=== PATIENT | female | born 1940 | race Caucasian/White ===

== ENCOUNTER 2017-10-14 03:06 | Inpatient (IN) | payer MEDICARE ==
[2017-10-14] VITALS (7 sets, daily range): BP systolic 122–139; BP diastolic 63–75; PULSE 71–80; RESP 14–18; TEMP 96.3–98.5; O2SAT 89–97
[2017-10-14] MEDS ORDERED: ZOLO100T PO (03:19)
[2017-10-14] MEDS ORDERED: LISI-515 PO (03:19)
[2017-10-14] MEDS ORDERED: MORPHINE SULFATE 2 MG/ML INJ IV PUSH ONE (04:30)
[2017-10-14] MEDS ORDERED: MORPHINE SULFATE 4 MG/ML INJ IV PUSH ONE (04:30)
--- NOTE | 2017-10-14 04:44 | PD ---
HPI Chief Complaint: Injury Time Seen by Provider: 03:18 Travel History International Travel<30 days: No Contact w/Intl Traveler<30days: No Traveled to known affect area: No History of Present Illness HPI pt transferred from [facility] for supracondyle fracture with small gas in joint , Trauma accepted transfer but on arrival feels that pt can got to ortho directly and I call certified orthotist/pedorthist for splint sugar tongs and then Ortho attending his partition assembly machine operator PA Jose A called back to ask to admit to Hepis and NPO for OR in AM . On arrival pt is in sling and jaja wrapped. > Pt was given Morphine and ancef at the other hospital .... pt has Hx of HTN on Lisinopril 20 mg po and no other Hx. Pain severe 10/10 but morhine helped pain , and now 4/10 , Seen at [facility] before seen by this MD . Pt stable vitals at this time will admit for OR PFSH Past Medical History Anemia: Yes Kidney Stones: Yes Past Surgical History Hysterectomy: Yes Other Surgery: Yes (LITHROTRIPSY ) Social History Alcohol Use: Yes Tobacco Use: No Substance Use: No Allergies-Medications (Allergen,Severity, Reaction): Coded Allergies: No Known Allergies (Verified Allergy, Unknown, 11/21/03) Sulfa (Sulfonamide Antibiotics) (Verified Allergy, Unknown, 10/14/17) Reported Meds & Prescriptions Reported Meds & Active Scripts Active Calcium 600+D 200 (Calcium Carbonate-Vitamin D) 600-200 Mg-Unit Tab 1 Tab PO BID Ergocalciferol 50,000 Unit Cap 50,000 Units PO Q7D Hydrocodone-Acetaminophen 7.5 Mg-325 Mg Tab 1 Tab PO Q4H PRN Reported Lisinopril 20 Mg Tab 20 Mg PO DAILY Zoloft (Sertraline HCl) 100 Mg Tab 125 Mg PO DAILY Review of Systems Except as stated in HPI: all other systems reviewed are Neg Physical Exam Narrative GENERAL: non toxic appearance moderate pain if arm moved. SKIN: Warm and dry. HEAD: Atraumatic. Normocephalic. EYES: Pupils equal and round. No scleral icterus. No injection or drainage. ENT: No nasal bleeding or discharge. Mucous membranes pink and moist. NECK: Trachea midline. No JVD. CARDIOVASCULAR: Regular rate and rhythm. RESPIRATORY: No accessory muscle use. Clear to auscultation. Breath sounds equal bilaterally. GASTROINTESTINAL: Abdomen soft, non-tender, nondistended. Hepatic and splenic margins not palpable. MUSCULOSKELETAL: Extremities right elbow area tender slightly swollen, distal radial pulse intact 2 + and sensation neuro vascular intact NEUROLOGICAL: Awake and alert. No obvious cranial nerve deficits. Motor grossly within normal limits. Five out of 5 muscle strength in the arms and legs. Normal speech. PSYCHIATRIC: Appropriate mood and affect; insight and judgment normal. EXTREMITY Right elbow is in a sling tender and swollen at the distal humerus area pain in the joint of the elbow --sensation intact pulses radial pulses intact Data Data Last Documented VS Vital Signs Date Time Temp Pulse Resp B/P (MAP) Pulse Ox O2 Delivery O2 Flow Rate FiO2 10/14/17 03:09 98.5 72 18 139/63 (88) 89 Orders Orders Morphine Inj (Morphine Inj) (10/14/17 04:30) Morphine Inj (Morphine Inj) (10/14/17 04:30) Admit To Inpatient (10/14/17 ) Vital Signs (Adult) Q4H (10/14/17 04:43) Activity Oob With Assistance (10/14/17 04:43) Intake + Output DAVID.QSHIFT (10/14/17 04:43) Sodium Chlor 0.9% 1000 Ml Inj (Ns 1000 M (10/14/17 04:43) Sodium Chloride 0.9% Flush (Ns Flush) (10/14/17 04:45) Sodium Chloride 0.9% Flush (Ns Flush) (10/14/17 09:00) Ondansetron Inj (Zofran Inj) (10/14/17 04:45) Comprehensive Metabolic Panel (10/14/17 06:00) Complete Blood Count With Diff (10/14/17 06:00) Prothrombin Time / Inr (Pt) (10/14/17 06:00) Case Management Consult (10/14/17 04:43) Acetaminophen (Tylenol) (10/14/17 04:45) Acetamin-Hydrocod 325-5 Mg ([place] 5-325 (10/14/17 04:45) Morphine Inj (Morphine Inj) (10/14/17 04:45) Docusate Sodium-Senna (Carlotta-Colace) (10/14/17 09:00) Magnesium Hydroxide Liq (Milk Of Magnesi (10/14/17 04:45) Sennosides (Senokot) (10/14/17 04:45) Bisacodyl Supp (Dulcolax Supp) (10/14/17 04:45) Lactulose Liq (Lactulose Liq) (10/14/17 04:45) Inpatient Certification (10/14/17 ) Consult Orthopedic (10/14/17 ) Lisinopril (Prinivil) (10/14/17 09:00) Admit Order (Ed Use Only) (10/14/17 04:50) Sertraline (Zoloft) (10/14/17 09:00) MDM Medical Decision Making Medical Screen Exam Complete: Yes Emergency Medical Condition: Yes Differential Diagnosis Fracture open distal humerus right sided seen on x-rays at [facility] who accepted the patient and orthopedics is consult to patient is admitted to have this orthopedics Nathalia will be involved with the patient Thuy called back Ancef GEN given tetanus and fluid nothing by mouth for possible OR and a.m. Narrative Course Patient has a fracture transfer [facility] doctor show it's of trauma except the patient then feels orthopedics can take the patient from medicine [facility] admitting service and orthopedic take to the OR in the a.m. Diagnosis Primary Impression: Fracture, humerus Scripts Calcium Carbonate-Vitamin D (Calcium 600+D 200) 600-200 Mg-Unit Tab 1 TAB PO BID for Nutritional Supplement, #90 TAB 0 Refills Prov: Jose A Sandhu Jr. 10/14/17 Ergocalciferol (Ergocalciferol) 50,000 Unit Cap 54704 UNITS PO Q7D for Nutritional Supplement, #8 CAP Prov: Jose A Sandhu Jr. 10/14/17 Hydrocodone-Acetaminophen (Hydrocodone-Acetaminophen) 7.5 Mg-325 Mg Tab 1 TAB PO Q4H Y for PAIN, #60 TAB 0 Refills Prov: Arnold Stewart/Petroleum Transport Driver TIN 10/14/17 Alonzo Mustafa MD Oct 14, 2017 04:44
[2017-10-14] MEDS ORDERED: ACETAMINOPHEN 325 MG TAB PO PRN (04:45)
[2017-10-14] MEDS ORDERED: SODIUM CHLORIDE 0.9% FLUSH 10 ML FLUSH IV FLUSH PRN (04:45)
[2017-10-14] MEDS ORDERED: LACTULOSE SYRUP 20 GM/30 ML CUP PO PRN (04:45)
[2017-10-14] MEDS ORDERED: ONDANSETRON HCL 4 MG/2 ML VIAL IVP PRN (04:45)
[2017-10-14] MEDS ORDERED: MAGNESIUM HYDROXIDE SUSP 30 ML CUP PO PRN (04:45)
[2017-10-14] MEDS ORDERED: ACETAMINOPHEN/HYDROcodone 325 MG/5 MG TAB PO PRN ×2 (04:45→09:30)
[2017-10-14] MEDS ORDERED: MORPHINE SULFATE 2 MG/ML INJ IV PUSH PRN ×2 (04:45→09:30)
[2017-10-14] MEDS ORDERED: SENNOSIDES 8.6 MG TAB PO PRN (04:45)
[2017-10-14] MEDS ORDERED: BISACODYL 10 MG SUPP RECTAL PRN (04:45)
--- NOTE | 2017-10-14 04:56 | HHI.HP ---
HPI Service [facility] Primary Care Physician Unknown Admission Diagnosis Diagnoses: (1) Fall Diagnosis: Principal (2) Right humeral fracture Diagnosis: Principal (3) HTN (hypertension) Diagnosis: Principal Travel History International Travel<30 Days: No Contact w/Intl Traveler <30 Da: No Traveled to Known Affected Are: No History of Present Illness This is a 76-year-old female with a PMH of HTN, Depression, Anemia and Renal Stones who was a Trauma transfer from [facility] for fall w/ right humerus fx. Pt was accepted by Trauma Surgeon, however upon arrival, pt cleared from Trauma and acceptable for medicine admission. Per pt, she tripped over curb and fell onto right shoulder. No head trauma or LOC. Denies other injuries. Found to have Right humerus fx on imaging from ([facility] in chart). Ortho consulted by ER physician, plan is for surgical intervention. Review of Systems Except as stated in HPI: all other systems reviewed are Neg ROS: 14 point review of systems otherwise negative. Past Family Social History Past Medical History PMH: HTN, Depression, Anemia and Renal Stones Past Surgical History PAST SURGICAL HISTORY: Hysterectomy, Lithotripsy Allergies: Coded Allergies: No Known Allergies (Verified Allergy, Unknown, 11/21/03) Sulfa (Sulfonamide Antibiotics) (Verified Allergy, Unknown, 10/14/17) Family History PAST FAMILY HISTORY: Reviewed. No h/o DM or CAD Social History PAST SOCIAL HISTORY: Occasional alcohol. Negative for tobacco or drugs. Physical Exam Vital Signs Vital Signs Date Time Temp Pulse Resp B/P (MAP) Pulse Ox O2 Delivery O2 Flow Rate FiO2 10/14/17 03:09 98.5 72 18 139/63 (88) 89 Physical Exam PE: GENERAL: Pleasant elderly white female in no acute distress. at bedside. HEENT: PERRLA, EOMI. No scleral icterus or conjunctival pallor. No lid lag or facial droop. CARDIOVASCULAR: Regular rate and rhythm. No obvious murmurs to auscultation. No chest tenderness to palpation. RESPIRATORY: No obvious rhonchi or wheezing. Clear to auscultation. Breath sounds equal bilaterally. GASTROINTESTINAL: Abdomen soft, non-tender, nondistended. BS normal. MUSCULOSKELETAL: Extremities without clubbing, cyanosis, or edema. No obvious deformities. Decreased ROM of RUE due to injury, RUE in sling. Pulses intact. NEUROLOGICAL: Awake, alert and oriented x4. No focal neurologic deficits. Moving both upper and lower extremities spontaneously. Caprini VTE Risk Assessment Caprini VTE Risk Assessment: No/Low Risk (score <= 1) Caprini Risk Assessment Model Point Value = 1 Point Value = 2 Point Value = 3 Point Value = 5 Age 41-60 Minor surgery BMI > 25 kg/m2 Swollen legs Varicose veins or History of unexplained or recurrent spontaneous Oral contraceptives or hormone replacement Sepsis (< 1 month) Serious lung disease, including pneumonia (< 1 month) Abnormal pulmonary function Acute myocardial infarction Congestive heart failure (< 1 month) History of inflammatory bowel disease Medical patient at bed rest Age 61-74 Arthroscopic surgery Major open surgery (> 45 min) Laparoscopic surgery (> 45 min) Malignancy Confined to bed (> 72 hours) Immobilizing plaster cast Central venous access Age >= 75 History of VTE Family history of VTE Factor V Leiden Prothrombin [id number] Lupus anticoagulant Anticardiolipin antibodies Elevated serum homocysteine Heparin-induced thrombocytopenia Other congenital or acquired thrombophilia Stroke (< 1 month) Elective arthroplasty Hip, pelvis, or leg fracture Acute spinal cord injury (< 1 month) Prophylaxis Regimen Total Risk Factor Score Risk Level Prophylaxis Regimen 0-1 Low Early ambulation 2 Moderate Order ONE of the following: *Sequential Compression Device (SCD) *Heparin 5000 units SQ BID 3-4 Higher Order ONE of the following medications: *Heparin 5000 units SQ TID *Enoxaparin/Lovenox 40 mg SQ daily (WT < 150 kg, CrCl > 30 mL/min) *Enoxaparin/Lovenox 30 mg SQ daily (WT < 150 kg, CrCl > 10-29 mL/min) *Enoxaparin/Lovenox 30 mg SQ BID (WT < 150 kg, CrCl > 30 mL/min) AND/OR *Sequential Compression Device (SCD) 5 or more Highest Order ONE of the following medications: *Heparin 5000 units SQ TID (Preferred with Epidurals) *Enoxaparin/Lovenox 40 mg SQ daily (WT < 150 kg, CrCl > 30 mL/min) *Enoxaparin/Lovenox 30 mg SQ daily (WT < 150 kg, CrCl > 10-29 mL/min) *Enoxaparin/Lovenox 30 mg SQ BID (WT < 150 kg, CrCl > 30 mL/min) AND *Sequential Compression Device (SCD) Assessment and Plan Problem List: (1) Fall ICD Code: W19.XXXA - Unspecified fall, initial encounter (2) Right humeral fracture ICD Code: S42.301A - Unspecified fracture of shaft of humerus, right arm, initial encounter for closed fracture (3) HTN (hypertension) ICD Code: I10 - Essential (primary) hypertension Assessment and Plan A/P: 1. Fall: s/p mechanical trip and fall, no head trauma or LOC reported. No other injuries. 2. Right Humerus Fx: secondary to above, tx from [facility], imaging w/ right humerus fx (disk in chart). Ortho consulted by ER physician, plan is for surgical intervention. NPO, IVF, analgesics/antiemetics. Obtain pre-op labs. 3. HTN: Resume home Lisinopril, monitor BP 4. DVT Prophylaxis: Anticoagulation post op per Ortho 5. Social work for d/c planning as needed. 6. Case discussed at length w/ ER physician Physician Certification 2 Midnight Certification Type: Admission for Inpatient Services Order for Inpatient Services The services are ordered in accordance with Medicare regulations or non- Medicare payer requirements, as applicable. In the case of services not specified as inpatient-only, they are appropriately provided as inpatient services in accordance with the 2-midnight benchmark. Estimated LOS (days): 2 days is the estimated time the patient will need to remain in the hospital, assuming treatment plan goals are met and no additional complications. Post-Hospital Plan: Not yet determined Alessandra Calderón MD Oct 14, 2017 04:56
[2017-10-14] MEDS ORDERED: GENTAMICIN 80 MG PREMIX 100 ML IV ONE (05:00)
[2017-10-14] MEDS ORDERED: LACTATED RINGER'S 1000 ML IV PRN (05:45)
[2017-10-14] MEDS ORDERED: SODIUM CHLORID 0.9% 500 ML IV PRN (05:45)
[2017-10-14] MEDS ORDERED: CHLORHEXIDINE GLUCONATE 2 % 1 PACK (2 CLOTHS) TOPICAL PRN (05:45)
[2017-10-14] MEDS ORDERED: POVIDONE IODINE 5% (ANTISEPSIS KIT) 4 APPLICATIONS EACH NARE PRN (05:45)
[2017-10-14] MEDS: SODIUM CHLOR 0.9% 1000 ML INJ 1,000 ML IV SCH ×2 (06:33→13:39)
--- NOTE | 2017-10-14 06:41 | PD.ORT.PN ---
Subjective Subjective Remarks s/p fall at home. transferred from [facility]. right elbow pain. no other complaints. Objective Vitals Vital Signs Date Time Temp Pulse Resp B/P (MAP) Pulse Ox O2 Delivery O2 Flow Rate FiO2 10/14/17 03:09 98.5 72 18 139/63 (88) 89 Objective Remarks RUE: +Long arm splint. intact. NVI with good sensation to median/ulnar nerve. full extension of wrist/fingers. Assessment & Plan Assessment and Plan 1) Right Open Distal Humerus Fx -npo -consents -surgery today Arnold Stewart/First Jean Marie CASTLE Oct 14, 2017 06:41
[2017-10-14] MEDS ORDERED: HYDR-3580 PO (06:42)
[2017-10-14] MEDS ORDERED: ceFAZolin INJ 1,000 MG VIAL ONE (07:09)
[2017-10-14] MEDS ORDERED: GENTAMICIN SULFATE 80 MG/2 ML VIAL ONE (07:09)
[2017-10-14] MEDS ORDERED: VANCOMYCIN HCL 1000 MG VIAL ONE (07:09)
[2017-10-14] MEDS ORDERED: ACETAMINOPHEN 1000 MG/100 ML 100 ML IV ONE (07:47)
[2017-10-14] MEDS: SODIUM CHLORIDE 0.9% FLUSH 10 ML FLUSH IV FLUSH SCH ×2 (09:00→20:51)
[2017-10-14] MEDS: SERTRALINE HCL 50 MG TAB PO SCH (09:00)
[2017-10-14] MEDS: LISINOPRIL 20 MG TAB PO SCH (09:00)
[2017-10-14] MEDS: DOCUSATE SODIUM 50 MG/SENNA 8.6 MG TAB PO SCH ×2 (09:00→20:51)
[2017-10-14] MEDS ORDERED: Post-op Orders (for Pharmacy) XX ONE (09:30)
--- NOTE | 2017-10-14 09:32 | PD.OP ---
cc: David Sloan MD Operative Report Date of Surgery: Oct 14, 2017 Preoperative Diagnosis: Open right distal humerus supracondylar intercondylar fracture Postoperative Diagnosis: Procedure: Irrigation and debridement of open left distal humerus fracture, open reduction internal fixation of intra-articular supracondylar distal humerus fracture Anesthesia: Gen. Surgeon: David Sloan Portable Sawmill Operator(s): LAY Holden PA-C The surgical procedure was assisted by my physician nutritional assistant. My P.A. presence was necessary throughout this case for the manipulation and positioning of the surgical extremity. My P.A. was assisting me throughout the duration of this procedure. The skill set of a physician nutritional assistant was medically necessary to complete this procedure. During the surgical case the lab technician was working at the back table and the physician nutritional assistant was directly assisting me. Operation and Findings: Lucero was seen and evaluated preoperatively and found to have open right distal humerus intra-articular fracture. Treatment options were discussed regarding distal humerus fracture including surgical and nonsurgical treatments. After detailed discussion of risk and benefits of procedure patient wishes to proceed with surgery. Risks of surgery include bleeding, infection, nonunion, malunion, painful hardware, loss of motion of shoulder and elbow, weakness and numbness of arm, ulnar nerve injury as well as medical competitions including blood clots stroke and . Patient was brought to operating room and placed on the OR table. GETA was administered by anesthesiologist. Patient was positioned in lateral decubitus position. Extremities were well-padded. Axillary roll was placed. Operative arm and shoulder were prepped with alcohol followed by Hibiclens and draped usual sterile fashion. Timeout procedure was performed. IV antibiotics were given prior to incision. A standard posterior approach was utilized. Subcutaneous tissues was dissected with Bovie. The lateral border of the triceps was elevated off of the distal humerus. Fracture site was visualized. Next, the ulnar nerve was identified and protected throughout the procedure. The nerve was intact. The fracture was identified along the medial distal humerus. Soft tissue was removed from the fracture site. At this point attention was turned to irrigation debridement of the fracture. Overall the wound appeared to be relatively clean. The fracture edges were thoroughly debrided with curettes and rongeurs. Fracture site was cleaned with curettes. At this point the soft tissue and bone were thoroughly irrigated with sterile saline. Next attention was turned to reduction of fracture. At this point the lateral column fracture was reduced using fracture tenaculums. Fracture keyed into excellent alignment. The medial column was reduced next. This fragment also reduced well. Fracture tenaculums and K wires were used to hold provisional fixation. Multiplanar fluoroscopy confirmed excellent of fracture. Synthes distal humerus plates were selected. The medial plate was provisionally held the bone with K wires. 3.5 cortical screws were placed to compress plate to bone. Multiple 2.7 locking screws were placed distally. Care was taken to keep screws from penetrating the articular surface. Multiple screws were placed in each side of the fracture. All screws were predrilled and premeasured for appropriate length. Next the lateral plate was placed along the posterior lateral humerus. Plate was provisionally held to bone with K wires. 3.5 cortical screws were used to compress plate to bone. Additional 2.7 locking screws were placed distally. K wires were removed. Final fluoroscopy revealed excellent alignment of fracture with well-placed hardware. Incision was thoroughly irrigated. Fascia was closed with #0 PDS, subcutaneous tissues closed with 3-0 PDS, and skin was closed with marian. Sterile dressings were applied. Needle and sponge counts were correct. Patient was placed into a sling, and then transferred to recovery room in stable condition David Sloan MD Oct 14, 2017 09:32
[2017-10-14] MEDS ORDERED: DO NOT ADM ANY ANTICOAGULANT DRUGS PRN (09:52)
[2017-10-14] MEDS ORDERED: *RESP: ALBUTEROL 2.5 MG/3 ML NEB (PRN) PERIprocedural Use ONLY NEB ONE (10:02)
[2017-10-14] MEDS ORDERED: VITA500012 PO (10:05)
[2017-10-14] MEDS ORDERED: CALCTAB19 PO (10:05)
--- NOTE | 2017-10-14 10:50 | RADRPT ---
EXAM DATE/TIME: 10/14/2017 09:16 [facility] COMPARISON: No previous studies available for comparison. INDICATIONS : Open reduction internal fixation of right distal humerus fracture MEDICAL HISTORY : None. SURGICAL HISTORY : None. ENCOUNTER: Initial ACUITY: 1 day PAIN SCORE: Non-responsive. LOCATION: Right distal humerus FINDINGS: Hardware is noted within the right distal humerus status post ORIF. No dislocation is noted. CONCLUSION: Status post ORIF of right distal humeral fracture with hardware in good position. Devaughn Hill MD on October 14, 2017 at 10:47 Board Certified Radiologist. This report was verified electronically.
[2017-10-14] MEDS: ceFAZolin 2 GM PREMIX 50 ML IV SCH ×2 (11:43→20:51)
[2017-10-14] MEDS ORDERED: DEXAMETHASONE SOD PHOS 4 MG/ML VIAL IV ONE (12:00)
[2017-10-14] MEDS ORDERED: ONDANSETRON HCL 4 MG/2 ML VIAL IV PUSH ONE (12:00)
[2017-10-14] MEDS ORDERED: ePHEDrine/NS 25 MG/5 ML SYRINGE IV ONE ×2 (12:00)
[2017-10-14] MEDS ORDERED: PHENYLEPH/NS 1000 MCG/10 ML SYR IV ONE (12:00)
[2017-10-14] MEDS ORDERED: PROPOFOL 200 MG/20 ML AMP IV ONE (12:00)
[2017-10-14] MEDS ORDERED: NEOSTIGMINE 5 MG/5 ML SYRINGE IV PUSH ONE (12:00)
[2017-10-14] MEDS ORDERED: LIDOCAINE HCL 1% PF 5 ML SYRINGE OTHER ONE (12:00)
[2017-10-14] MEDS ORDERED: GLYCOPYRROLATE 1 MG/5 ML SYRINGE IV PUSH ONE (12:00)
[2017-10-14] MEDS ORDERED: ROCURONIUM INJ 50 MG/5 ML VIAL IV ONE (12:00)
--- NOTE | 2017-10-14 13:33 | EKG ---
Date Performed: 10/14/2017 Time Performed: 07:42:03 PTAGE: 76 years EKG: Sinus rhythm NORMAL ECG PREVIOUS TRACING : 11/21/2003 09.13 Since previous tracing, no significant change noted DOCTOR: Silvestre Escalante Interpretating Date/Time 10/14/2017 13:31:26
[2017-10-14] MEDS: ACETAMINOPHEN/HYDROcodone 325 MG/7.5 MG TAB PO PRN ×3 (13:35→21:37)
[2017-10-14] MEDS: GENTAMICIN 80 MG PREMIX 100 ML IV SCH ×2 (13:35→21:38)
--- NOTE | 2017-10-14 13:39 | MB ---
cc: DAVID PEÑA DATE OF CONSULTATION: 10/14/2017. REASON FOR CONSULTATION: CONSULTING PHYSICIAN: Dr. Calderón. HISTORY OF PRESENT ILLNESS: Lucero is a 76-year-old female with multiple medical problems. She has a history of hypertension, depression, anemia, renal stones as well as COPD. She fell and she landed on her right arm. She had immediate right arm pain and deformity. She was initially taken to [facility]. She was found to have an open right distal humerus fracture. She was subsequently transferred to [facility] for definitive treatment. Transfer was accepted by the trauma surgeon on-call. Upon presentation to [facility], the patient was cleared and was subsequently admitted to the medical service. She is currently awake and alert on the orthopedic floor. Her only complaint is her right arm. She denies dizziness, syncope or loss of consciousness. She describes a mechanical fall where she tripped over a curb. PAST MEDICAL HISTORY / ILLNESSES: 1. Hypertension. 2. Depression. 3. Anemia. 4. COPD. PAST SURGICAL HISTORY: 1. Hysterectomy. 2. Lithotripsy. ALLERGIES: SULFA. FAMILY HISTORY: Noncontributory. SOCIAL HISTORY: The patient has quit smoking. She drinks alcohol occasionally. She denies drug use. REVIEW OF SYSTEMS: The patient denies headache, visual changes, neck pain, chest pain, abdominal pain, nausea or vomiting or recent weight loss, numbness or tingling of the extremities or bowel or bladder incontinence. She does have some chronic shortness of breath. She complains of right arm pain. Pain is worse with movement. PHYSICAL EXAMINATION: GENERAL: The patient is a pleasant 76-year-old female. She is in no acute distress. She is awake and alert. She appears well-developed, well-nourished. VITAL SIGNS: Temperature 98.5, pulse 71, respirations 18, blood pressure 171/71, O2 sat 98% on room air. HEAD, EYES, EARS, NOSE, THROAT: The patient is normocephalic. Her pupils are equal. NECK: The neck is soft and nontender. Trachea is midline. ABDOMEN: The abdomen is soft, nontender and nondistended. EXTREMITIES: Examination of right arm reveals no tenderness around her shoulder or fingers. She has a long-arm splint. She has intact sensation in radial, ulnar and median nerve distributions. Examination of left arm reveals no pain with shoulder, elbow or wrist motion. Skin is intact. Radial pulse is palpable. Sensation is intact in all fingers. Examination of bilateral lower extremities reveals no pain with hip, knee or ankle motion. Skin is intact. Dorsalis pedis pulses are palpable. Sensation intact in both feet. X-RAYS: X-rays of right elbow were reviewed. X-rays reveal a displaced supracondylar humerus fracture. IMPRESSION: 1. osteoporosis. 2. COPD. 3. Hypertension. 4. Right distal humerus fracture. PLAN: The treatment options were discussed with the patient. At this point, I would recommend irrigation and debridement of right distal humerus with possible open reduction internal fixation. The risks of surgery include bleeding, infection, injury to arteries, nerves or blood vessels, injury to the ulnar nerve, weakness or numbness of the arm as well as medical complications including blood clot, stroke, heart attack and . All questions were answered. I will plan on surgery today. NOTE: A mid-level provider in my office, nurse practitioner or PA, may see this patient on a follow-up basis and continue to implement the objective of this plan including: Starting or adjusting medications, injections of muscle, tendon, bursa or joints, cast application, orthotic or brace application, physical therapy, further radiographic studies including x-ray, MRI, CT, ultrasounds or bone scan, vascular studies, neurologic studies, or other specialist consultations, and proceeding with surgical management as appropriate. David MD MARVEL Cadet/JACK /7:44 AM /12:56 PM SAM
[2017-10-14 18:36] LABS: PROTHROMBIN TIME - PATIENT 9.8 SEC (9.8-11.6)
[2017-10-14 18:43] LABS: ALBUMIN 2.9 GM/DL (3.4-5.0); ALT (GPT) 15 U/L (10-53); BICARBONATE 25.3 MEQ/L (21.0-32.0); BLOOD UREA NITROGEN 13 MG/DL (7-18); CALCIUM 9.9 MG/DL (8.5-10.1); CHLORIDE 108 MEQ/L (98-107); CREATININE 0.46 MG/DL (0.50-1.00); GLOMERULAR FILTRATION RATE 132 ML/MIN (>89); GLUCOSE,RANDOM 141 MG/DL (74-106); SODIUM (NA) 140 MEQ/L (136-145)
[2017-10-14 18:45] LABS: AST (GOT) 17 U/L (15-37)
[2017-10-14 18:46] LABS: ALKALINE PHOSPHATASE 96 U/L (45-117); TOTAL BILIRUBIN ADULT 0.6 MG/DL (0.2-1.0); TOTAL PROTEIN 6.2 GM/DL (6.4-8.2)
[2017-10-14 18:57] LABS: AUTOMATED NEUTROPHIL # 5.9 TH/MM3 (1.8-7.7); BASOPHIL % 0.3 % (0.0-2.0); EOSINOPHIL % 0.1 % (0.0-4.0); HEMATOCRIT 33.8 % (35.0-46.0); HEMOGLOBIN 11.7 GM/DL (11.6-15.3); LYMPH % 6.5 % (9.0-44.0); LYMPHOCYTE # 0.5 TH/MM3 (1.0-4.8); MEAN CELL VOLUME 101.7 FL (80.0-100.0); MEAN CORPUSCULAR HEMOGLOBIN 35.2 PG (27.0-34.0); MEAN CORPUSCULAR HGB CONC 34.6 % (32.0-36.0); MEAN PLATELET VOLUME 8.1 FL (7.0-11.0); MONO % 8.2 % (0.0-8.0); MONOCYTE # 0.6 TH/MM3 (0-0.9); NEUT % 84.9 % (16.0-70.0); PLATELET COUNT 193 TH/MM3 (150-450); RED BLOOD COUNT 3.32 MIL/MM3 (4.00-5.30); RED CELL DISTRIBUTION WIDTH 12.9 % (11.6-17.2); WHITE BLOOD COUNT 6.9 TH/MM3 (4.0-11.0)
[2017-10-14] MEDS: CALCIUM/VITAMIN D 250 MG/125 U TAB PO SCH (20:51)
[2017-10-15] VITALS (7 sets, daily range): BP systolic 119–156; BP diastolic 68–77; PULSE 69–80; RESP 16–20; TEMP 96.7–98; O2SAT 92–98
[2017-10-15] MEDS: SODIUM CHLOR 0.9% 1000 ML INJ 1,000 ML IV SCH ×2 (00:43→09:00)
[2017-10-15] MEDS: ACETAMINOPHEN/HYDROcodone 325 MG/7.5 MG TAB PO PRN ×5 (01:57→20:02)
[2017-10-15] MEDS: ceFAZolin 2 GM PREMIX 50 ML IV SCH ×3 (04:58→20:01)
[2017-10-15] MEDS: GENTAMICIN 80 MG PREMIX 100 ML IV SCH ×3 (05:08→23:20)
--- NOTE | 2017-10-15 07:08 | PD.ORT.PN ---
Subjective Subjective Remarks Resting comfortably in bed Objective Vitals Vital Signs Date Time Temp Pulse Resp B/P (MAP) Pulse Ox O2 Delivery O2 Flow Rate FiO2 10/15/17 06:56 Partial Non-Rebreather 15.00 10/15/17 03:55 97.6 72 16 121/77 (92) 96 10/15/17 00:00 96.7 71 20 153/69 (97) 98 10/14/17 20:53 96.7 76 18 130/63 (85) 92 10/14/17 19:19 97 Partial Rebreather 12.00 10/14/17 17:28 96.3 80 18 122/75 (91) 93 10/14/17 11:37 96.5 73 14 124/68 (86) 92 10/14/17 11:22 94 15.00 10/14/17 10:27 72 16 145/65 (91) 92 Nasal Cannula 4 10/14/17 10:12 71 18 160/67 (98) 94 Aerosol Mask 10/14/17 09:57 98.7 87 14 145/67 (93) 91 Nasal Cannula 4 10/14/17 07:20 71 18 171/71 (104) 90 I/O 10/14/17 10/14/17 10/14/17 10/15/17 10/15/17 10/15/17 07:00 15:00 23:00 07:00 15:00 23:00 Intake Total 880 ml 530 ml 1646 ml Output Total 150 ml Balance 730 ml 530 ml 1646 ml Intake Oral 480 ml 480 ml 360 ml IV Total 50 ml 1286 ml Other 400 ml Output Estimated Blood Loss 150 ml # Voids 1 1 1 # Bowel Movements 0 0 Result Diagram: 10/14/17 1633 10/14/17 1633 Other Results Laboratory Tests Test 10/14/17 16:33 Prothromb Time International Ratio 1.0 RATIO Prothrombin Time 9.8 SEC (9.8-11.6) Objective Remarks RUE: +Long arm splint. intact. NVI with good sensation to median/ulnar nerve. full extension of wrist/fingers. Assessment & Plan Assessment and Plan 1) Right Open Distal Humerus Fx ORIF POD 1 Nonweightbearing right upper extremity Maintain splint at all times. Sling when out of bed Continue IV antibiotics. Plan on discharge to home tomorrow once IV antibiotics are completed Follow-up Dr. Sloan or PA in 2 weeks Jose A Sandhu Jr. Oct 15, 2017 07:08
[2017-10-15] MEDS: LISINOPRIL 20 MG TAB PO SCH (08:53)
[2017-10-15] MEDS: CALCIUM/VITAMIN D 250 MG/125 U TAB PO SCH ×2 (08:53→20:00)
[2017-10-15] MEDS: CHOLECALCIFEROL (VIT D3) 1000 UNIT TAB PO SCH (08:53)
[2017-10-15] MEDS: SERTRALINE HCL 50 MG TAB PO SCH (08:54)
[2017-10-15] MEDS: DOCUSATE SODIUM 50 MG/SENNA 8.6 MG TAB PO SCH ×2 (08:54→20:01)
[2017-10-15] MEDS: SODIUM CHLORIDE 0.9% FLUSH 10 ML FLUSH IV FLUSH SCH ×2 (08:56→20:02)
--- NOTE | 2017-10-15 21:39 | HHI.PR ---
Subjective Remarks patient still on 5 L oxygen mask She has obstructive sleep apnea she has a CPAP at home Also plan to discharge tomorrow after last dose of antibiotic Objective Vitals Vital Signs Date Time Temp Pulse Resp B/P (MAP) Pulse Ox O2 Delivery O2 Flow Rate FiO2 10/15/17 20:00 97.6 80 18 156/73 (100) 92 10/15/17 15:24 92 Nasal Cannula 6.00 Humidified 10/15/17 15:24 97.7 73 18 132/76 (94) 92 10/15/17 15:20 92 Nasal Cannula 6.00 10/15/17 11:00 97.9 69 18 119/68 (85) 98 10/15/17 11:00 Partial Non-Rebreather 8.00 10/15/17 08:00 98.0 74 18 153/73 (99) 98 10/15/17 06:56 Partial Non-Rebreather 15.00 10/15/17 03:55 97.6 72 16 121/77 (92) 96 10/15/17 00:00 96.7 71 20 153/69 (97) 98 I/O 10/14/17 10/14/17 10/14/17 10/15/17 10/15/17 10/15/17 06:59 14:59 22:59 06:59 14:59 22:59 Intake Total 880 ml 530 ml 1646 ml 960 ml Output Total 150 ml Balance 730 ml 530 ml 1646 ml 960 ml Intake Oral 480 ml 480 ml 360 ml 960 ml IV Total 50 ml 1286 ml Other 400 ml Output Estimated Blood Loss 150 ml # Voids 1 1 1 3 # Bowel Movements 0 0 0 Result Diagram: 10/14/17 1633 10/14/17 1633 Objective Remarks GENERAL: Pleasant elderly white female in no acute distress. at bedside. HEENT: PERRLA, EOMI. No scleral icterus or conjunctival pallor. No lid lag or facial droop. CARDIOVASCULAR: Regular rate and rhythm. No obvious murmurs to auscultation. No chest tenderness to palpation. RESPIRATORY: No obvious rhonchi or wheezing. Clear to auscultation. Breath sounds equal bilaterally. GASTROINTESTINAL: Abdomen soft, non-tender, nondistended. BS normal. MUSCULOSKELETAL: Extremities without clubbing, cyanosis, or edema. No obvious deformities. RUE in sling. Pulses intact. NEUROLOGICAL: Awake, alert and oriented x4. No focal neurologic deficits. Moving both upper and lower extremities spontaneously. A/P Problem List: (1) Fall ICD Code: W19.XXXA - Unspecified fall, initial encounter (2) Right humeral fracture ICD Code: S42.301A - Unspecified fracture of shaft of humerus, right arm, initial encounter for closed fracture (3) HTN (hypertension) ICD Code: I10 - Essential (primary) hypertension Assessment and Plan A/P: 1. Fall: s/p mechanical trip and fall, no head trauma or LOC reported. No other injuries. 2. Right Humerus Fx: secondary to above, tx from [facility], imaging w/ right humerus fx (disk in chart). Ortho consulted status postr surgical intervention. , analgesics/antiemetics. also plan to discharge tomorrow after last dose of antibiotic 3. HTN: Resume home Lisinopril, monitor BP 4. DVT Prophylaxis: Anticoagulation post op per Ortho 5. Hypoxia with history of obstructive sleep apnea, continue weaning down oxygen, incentive spirometer every hour, monitor closely Problem Qualifiers (1) HTN (hypertension): Qualified Codes: I10 - Essential (primary) hypertension Tricia Bradley MD Oct 15, 2017 21:39
[2017-10-16] VITALS: BP 156/73; PULSE 76; RESP 18; TEMP 97.4; O2SAT 92
[2017-10-16] MEDS: ACETAMINOPHEN/HYDROcodone 325 MG/7.5 MG TAB PO PRN (00:11)
[2017-10-16] MEDS: ceFAZolin 2 GM PREMIX 50 ML IV SCH (03:38)
[2017-10-16] MEDS: ACETAMINOPHEN/HYDROcodone 325 MG/10 MG TAB PO PRN ×3 (04:08→13:04)
[2017-10-16 04:15] VITALS: BP 171/75; PULSE 79; RESP 18; TEMP 98; O2SAT 94
[2017-10-16 04:51] LABS: AUTOMATED NEUTROPHIL # 4.3 TH/MM3 (1.8-7.7); BASOPHIL % 0.2 % (0.0-2.0); EOSINOPHIL # 0.2 TH/MM3 (0-0.4); EOSINOPHIL % 3.1 % (0.0-4.0); HEMATOCRIT 34.1 % (35.0-46.0); HEMOGLOBIN 11.5 GM/DL (11.6-15.3); LYMPH % 15.7 % (9.0-44.0); MEAN CELL VOLUME 101.3 FL (80.0-100.0); MEAN CORPUSCULAR HGB CONC 33.6 % (32.0-36.0); MEAN PLATELET VOLUME 7.9 FL (7.0-11.0); MONO % 11.6 % (0.0-8.0); MONOCYTE # 0.7 TH/MM3 (0-0.9); NEUT % 69.4 % (16.0-70.0); PLATELET COUNT 165 TH/MM3 (150-450); RED BLOOD COUNT 3.37 MIL/MM3 (4.00-5.30); WHITE BLOOD COUNT 6.3 TH/MM3 (4.0-11.0)
[2017-10-16 05:06] LABS: BICARBONATE 28.5 MEQ/L (21.0-32.0); CALCIUM 10.1 MG/DL (8.5-10.1); CREATININE 0.36 MG/DL (0.50-1.00)
[2017-10-16] MEDS ORDERED: cloNIDine HCL 0.1 MG TAB PO PRN (05:30)
[2017-10-16] MEDS: GENTAMICIN 80 MG PREMIX 100 ML IV SCH (05:38)
--- NOTE | 2017-10-16 06:34 | PD.ORT.PN ---
Subjective Subjective Remarks POD 2 s/p ORIF right distal humerus doing well. pain controlled out of bed and ambulating to bathroom with minimal difficulty Objective Vitals Vital Signs Date Time Temp Pulse Resp B/P (MAP) Pulse Ox O2 Delivery O2 Flow Rate FiO2 10/16/17 00:00 97.4 76 18 156/73 (100) 92 10/15/17 20:00 97.6 80 18 156/73 (100) 92 10/15/17 15:24 92 Nasal Cannula 6.00 Humidified 10/15/17 15:24 97.7 73 18 132/76 (94) 92 10/15/17 15:20 92 Nasal Cannula 6.00 10/15/17 11:00 97.9 69 18 119/68 (85) 98 10/15/17 11:00 Partial Non-Rebreather 8.00 10/15/17 08:00 98.0 74 18 153/73 (99) 98 10/15/17 06:56 Partial Non-Rebreather 15.00 I/O 10/15/17 10/15/17 10/15/17 10/16/17 10/16/17 10/16/17 07:00 15:00 23:00 07:00 15:00 23:00 Intake Total 1646 ml 960 ml 360 ml Balance 1646 ml 960 ml 360 ml Intake Oral 360 ml 960 ml 360 ml IV Total 1286 ml # Voids 1 3 3 # Bowel Movements 0 0 0 Result Diagram: 10/16/17 0349 10/16/17 0349 Objective Remarks RUE: +Long arm splint. intact. NVI with good sensation to median/ulnar nerve. full extension of wrist/fingers. Assessment & Plan Assessment and Plan 1) Right Open Distal Humerus Fx ORIF POD 2 Nonweightbearing right upper extremity Maintain splint at all times. Sling when out of bed Continue IV antibiotics. Plan on discharge to home today once IV antibiotics are completed Follow-up Dr. Sloan or [place] in 2 weeks Arnold Stewart/First Jean Marie CASTLE Oct 16, 2017 06:34
--- NOTE | 2017-10-16 07:54 | HHI.PR ---
Subjective Remarks pain controlled with po meds no complains tolerated po well Objective Vitals Vital Signs Date Time Temp Pulse Resp B/P (MAP) Pulse Ox O2 Delivery O2 Flow Rate FiO2 10/16/17 04:15 98.0 79 18 171/75 (107) 94 10/16/17 00:00 97.4 76 18 156/73 (100) 92 10/15/17 20:00 97.6 80 18 156/73 (100) 92 10/15/17 15:24 92 Nasal Cannula 6.00 Humidified 10/15/17 15:24 97.7 73 18 132/76 (94) 92 10/15/17 15:20 92 Nasal Cannula 6.00 10/15/17 11:00 97.9 69 18 119/68 (85) 98 10/15/17 11:00 Partial Non-Rebreather 8.00 10/15/17 08:00 98.0 74 18 153/73 (99) 98 I/O 10/15/17 10/15/17 10/15/17 10/16/17 10/16/17 10/16/17 06:59 14:59 22:59 06:59 14:59 22:59 Intake Total 1646 ml 960 ml 360 ml 480 ml Balance 1646 ml 960 ml 360 ml 480 ml Intake Oral 360 ml 960 ml 360 ml 480 ml IV Total 1286 ml # Voids 1 3 3 3 # Bowel Movements 0 0 0 0 Result Diagram: 10/16/17 0349 10/16/17 0349 Imaging Last Impressions Elbow X-Ray 10/14/17 0000 Signed Impressions: Service Date/Time: Saturday, October 14, 2017 09:16 - CONCLUSION: Status post ORIF of right distal humeral fracture with hardware in good position. Devaughn Hill MD Objective Remarks awake and alert, no acute distress anicteric lungs- no rales or wheezes regular rhythm abdomen soft RUE- post op dressing, Sling and watch in place LE- no edema Procedures 10/14- ORIF right distal humerus A/P Problem List: (1) Fall ICD Code: W19.XXXA - Unspecified fall, initial encounter (2) Right humeral fracture ICD Code: S42.301A - Unspecified fracture of shaft of humerus, right arm, initial encounter for closed fracture (3) HTN (hypertension) ICD Code: I10 - Essential (primary) hypertension Assessment and Plan 76 years old left handed female S/P fall S/P ORIF right distal humeral fracture 10/14 -cleared by Ortho for DC - prn pain meds - PT/OT History of hypertension -continue on home meds- Lisinopril Continue on home meds- Zoloft DC home today C< consult for DC needs OP ff up with Orthopedics as ordered OP ff up with PCP- Dr. Covarrubias in 1 week Diet- low sodium diet Activity- non weightbearing RUE meds - as above Problem Qualifiers (1) HTN (hypertension): Qualified Codes: I10 - Essential (primary) hypertension Eliza Schneider MD Oct 16, 2017 07:54
--- NOTE | 2017-10-16 07:58 | HHI.FF ---
Face to Face Verification Diagnosis: (1) Right humeral fracture (2) Fall Physical Therapy Order: Evaluate and Treat Occupational Therapy Order: Evaluate and Treat, Gross motor coordination, Fine motor coordination Home Health Nursing Order: Wound care and dressing changes Nursing assessment with vital signs [employer] Order: To Evaluate: Living conditions/environment, Support services I have seen patient Lucero Guallpa on 10/16/17. My clinical findings support the need for the requested home health care services because: Ltd mobility - disease progression Limited ability to care for self High risk of falls I certify that my clinical findings support that this patient is homebound because: Post-op weakness Eliza Schneider MD Oct 16, 2017 07:58
[2017-10-16 08:00] VITALS: BP 143/76; PULSE 71; RESP 18; TEMP 98; O2SAT 94
[2017-10-16] MEDS: SODIUM CHLOR 0.9% 1000 ML INJ 1,000 ML IV SCH (08:01)
[2017-10-16] MEDS: DOCUSATE SODIUM 50 MG/SENNA 8.6 MG TAB PO SCH (08:40)
[2017-10-16] MEDS: CHOLECALCIFEROL (VIT D3) 1000 UNIT TAB PO SCH (08:40)
[2017-10-16] MEDS: LISINOPRIL 20 MG TAB PO SCH (08:41)
[2017-10-16] MEDS: CALCIUM/VITAMIN D 250 MG/125 U TAB PO SCH (08:41)
[2017-10-16] MEDS: SERTRALINE HCL 50 MG TAB PO SCH (08:41)
[2017-10-16] MEDS: SODIUM CHLORIDE 0.9% FLUSH 10 ML FLUSH IV FLUSH SCH (08:51)
[2017-10-16 10:07] VITALS: O2SAT 94
[2017-10-16 12:00] VITALS: BP 122/69; PULSE 72; RESP 19; TEMP 98.2; O2SAT 92
--- NOTE | 2017-10-16 17:03 | HHI.DS ---
Discharge Summary Admission Date Oct 14, 2017 at 04:51 Discharge Date: Oct 16, 2017 Admitting Diagnosis (1) Fall ICD Code: W19.XXXA - Unspecified fall, initial encounter Diagnosis: Principal (2) Right humeral fracture ICD Code: S42.301A - Unspecified fracture of shaft of humerus, right arm, initial encounter for closed fracture Diagnosis: Principal (3) HTN (hypertension) ICD Code: I10 - Essential (primary) hypertension Diagnosis: Secondary Procedures 10/14- ORIF right distal humerus Brief History - From Admission This is a 76-year-old female with a PMH of HTN, Depression, Anemia and Renal Stones who was a Trauma transfer from [facility] for fall w/ right humerus fx. Pt was accepted by Trauma Surgeon, however upon arrival, pt cleared from Trauma and acceptable for medicine admission. Per pt, she tripped over curb and fell onto right shoulder. No head trauma or LOC. Denies other injuries. Found to have Right humerus fx on imaging from ([facility] in chart). Ortho consulted by ER physician, plan is for surgical intervention. CBC/BMP: 10/16/17 0349 10/16/17 0349 Significant Findings Laboratory Tests Test 10/14/17 16:33 10/16/17 03:49 Red Blood Count 3.32 MIL/MM3 (4.00-5.30) 3.37 MIL/MM3 (4.00-5.30) Hematocrit 33.8 % (35.0-46.0) 34.1 % (35.0-46.0) Mean Corpuscular Volume 101.7 FL (80.0-100.0) 101.3 FL (80.0-100.0) Mean Corpuscular Hemoglobin 35.2 PG (27.0-34.0) Neutrophils (%) (Auto) 84.9 % (16.0-70.0) Lymphocytes (%) (Auto) 6.5 % (9.0-44.0) Monocytes (%) (Auto) 8.2 % (0.0-8.0) 11.6 % (0.0-8.0) Lymphocytes # (Auto) 0.5 TH/MM3 (1.0-4.8) Creatinine 0.46 MG/DL (0.50-1.00) 0.36 MG/DL (0.50-1.00) Random Glucose 141 MG/DL (74-106) Total Protein 6.2 GM/DL (6.4-8.2) Albumin 2.9 GM/DL (3.4-5.0) Chloride Level 108 MEQ/L (98-107) 108 MEQ/L (98-107) Hemoglobin 11.5 GM/DL (11.6-15.3) Imaging Last Impressions Elbow X-Ray 10/14/17 0000 Signed Impressions: Service Date/Time: Saturday, October 14, 2017 09:16 - CONCLUSION: Status post ORIF of right distal humeral fracture with hardware in good position. Devaughn Hill MD PE at Discharge GENERAL: Pleasant elderly white female in no acute distress. at bedside. HEENT: PERRLA, EOMI. No scleral icterus or conjunctival pallor. No lid lag or facial droop. CARDIOVASCULAR: Regular rate and rhythm. No obvious murmurs to auscultation. No chest tenderness to palpation. RESPIRATORY: No obvious rhonchi or wheezing. Clear to auscultation. Breath sounds equal bilaterally. GASTROINTESTINAL: Abdomen soft, non-tender, nondistended. BS normal. MUSCULOSKELETAL: Extremities without clubbing, cyanosis, or edema. No obvious deformities. RUE in sling. Pulses intact. NEUROLOGICAL: Awake, alert and oriented x4. No focal neurologic deficits. Moving both upper and lower extremities spontaneously. Pt update on day of discharge awake and alert RUE - S/S in place pain controlled Hospital Course 76 years old left handed female S/P fall S/P ORIF right distal humeral fracture 10/14 -cleared by Ortho for DC - prn pain meds - PT/OT History of hypertension -continue on home meds- Lisinopril Continue on home meds- Zoloft DC home today C< consult for DC needs OP ff up with Orthopedics as ordered OP ff up with PCP- Dr. Covarrubias in 1 week Pt Condition on Discharge: Stable Discharge Disposition: Disch w/ Home Health Serv Discharge Time: > 30 minutes Discharge Instructions DIET: Follow Instructions for: Heart Healthy Diet Speech Therapy-Diet Recommends: Regular Activities you can perform: Weight Bearing as Shannan, See Additionl Instruction Other Activity Instructions: non weightbearing RUE Follow up Referrals: Orthopedics - 2 Weeks @ [facility] with David Carter MD PCP Follow-up - 1 Week with PCP New Medications: Calcium Carbonate-Vitamin D (Calcium 600+D 200) 600-200 Mg-Unit Tab 1 TAB PO BID for Nutritional Supplement, #90 TAB 0 Refills Ergocalciferol (Ergocalciferol) 50,000 Unit Cap 38266 UNITS PO Q7D for Nutritional Supplement, #8 CAP Hydrocodone-Acetaminophen (Hydrocodone-Acetaminophen) 7.5 Mg-325 Mg Tab 1 TAB PO Q4H PRN for PAIN, #60 TAB 0 Refills Continued Medications: Lisinopril (Lisinopril) 20 Mg Tab 20 MG PO DAILY, #30 TAB 0 Refills Sertraline (Zoloft) 100 Mg Tab 125 MG PO DAILY, #30 TAB 0 Refills Eliza Schneider MD Oct 16, 2017 17:03
== END 2017-10-16 13:27 | disposition home health service (06) | DRG 494 ==
LOC: NEPE 03:06 → NEDA 04:51 → N06A 05:25
PROVIDERS: ADMIT Internal Medicine; ATTEND Internal Medicine
PROC: 0PSF04Z Reposition Right Humeral Shaft with Internal Fixation Device, Open Approach (ICD-10-PCS; principal; 2017-10-14 07:48)
DX: S42.491B Other displaced fracture of lower end of right humerus, initial encounter for open fracture (principal); J44.9 Chronic obstructive pulmonary disease, unspecified; I10 Essential (primary) hypertension; G47.33 Obstructive sleep apnea (adult) (pediatric); M81.0 Age-related osteoporosis without current pathological fracture; R09.02 Hypoxemia; F32.9 Major depressive disorder, single episode, unspecified; W10.1XXA Fall (on)(from) sidewalk curb, initial encounter; Y92.009 Unspecified place in unspecified non-institutional (private) residence as the place of occurrence of the external cause; Z87.891 Personal history of nicotine dependence; Z88.2 Allergy status to sulfonamides
CPT/HCPCS: 73070; 76000; 80048; 80053; 85025; 85610; 93005; 94150; 94640; 96374; C1713; J0131; J0690; J1100; J1580; J2270; J2370; J2405; J2710; J3010; J3370; J7030; J7613